=== PATIENT | female | born 1975 | race Caucasian/White ===

== ENCOUNTER 2017-08-03 13:37 | Emergency (ER) | payer OTHER ==
[2017-08-03 13:50] VITALS: BP 168/105
[2017-08-03] MEDS ORDERED: oxyCOD/ACETAMIN 5 MG/325 MG TABLET PO STA (15:57)
--- NOTE | 2017-08-03 17:14 | ED Physician Documentation ---
History of Present Illness - Stated complaint Stated Complaint: LEFT CALF PX - Chief complaint Chief Complaint: Ext Problem - Additonal information Additional information: hx from pt while simply stepping up a small step she felt a sudden sharp pop in her posterior L calf then sig swelling and bruising has since developed she has take motrin, worn compression stocking and even borrowed a cam walker but pain and swelling persist her toes feel a little bit numb but that might be due to the tight stockings Review of Systems Constitutional: denies: Fever Cardiac: denies: Chest pain / pressure Respiratory: denies: Dyspnea : denies: Now EGA (denies) Musculoskeletal: reports: Extremity pain, Extremity swelling Endocrine: denies: Easy bruising / bleeding Immunocompromised: denies: Immunocompromised PD PAST MEDICAL HISTORY - Past Medical History Past Medical History: Yes Cardiovascular: Hypertension Neuro: Headache/migraine GI: GERD 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 Psych: Depression, ADD/ADHD - Past Surgical History Past Surgical History: Yes General: Cholecystectomy Ortho: Carpal Tunnel surgery /FOOD TRADES ASSISTANTS: section - Present Medications Home Medications: Ambulatory Orders Medication Instructions Recorded Confirmed Dextroamphetamine/Amphetamine 1 tab PO BID 08/03/17 08/03/17 [Adderall 20 mg Tablet] FLUoxetine [PROzac] 4 tab PO DAILY 08/03/17 08/03/17 Omeprazole [PriLOSEC] 1 tab PO DAILY 08/03/17 08/03/17 hydroCHLOROthiazide 25 mg PO DAILY 08/03/17 08/03/17 [Hydrochlorothiazide] - Allergies Allergies/Adverse Reactions: Allergies Allergy/AdvReac Type Severity Reaction Status Date / Time promethazine HCl * Allergy Hives Verified 08/03/17 14:44 [From Phenergan] - Social History Does the pt smoke?: No Smoking Status: Never smoker Does the pt drink ETOH?: Yes ETOH Use: Wine Does the pt have substance abuse?: No - Immunizations Immunizations are current?: Yes - POLST Patient has POLST: No PD ED PE NORMAL - Vitals Vital signs reviewed: Yes - Cardiac Cardiac: RRR - Respiratory Respiratory: No respiratory distress, Clear bilaterally - Extremities Extremities: Other (LLE calf markedly swollen with aged ecchymosis, palpable cmpt are soft, + cap refill, + sensation though slightly dec to toes, able to mve foot and toes though increases the pain) Results - Vitals Vitals: Vital Signs - 24 hr 08/03/17 13:46 Temperature 35.9 C L Heart Rate 83 Respiratory 16 Rate Blood Pressure 168/105 H O2 Saturation 100 Oxygen O2 Source Room air - Rads (name of study) doppler Radiology: See rad report (no DVT or other abn noted) Departure - Departure Disposition: Home, Self Care Clinical Impression: Strain of calf muscle Qualifiers: Encounter type: initial encounter Laterality: left Qualified Code(s): S86.812A - Strain of other muscle(s) and tendon(s) at lower leg level, left leg, initial encounter Condition: Good Instructions: Gastrocnemius Muscle Tear Follow-Up: CAPRICE JOYA MD [Primary Care Provider] - Comments: The ultrasound is fine - no blood clot seen. Based on your exam I do not think you have compartment syndrome (when the injured muscle swells up so tight it cuts off its own blood supply) Your achilles tendon feel intact and the the foot flexes so I do not think the calf muscles are completely torn But based on your description of the injury and the exam I suspect you have torn the deep calf muscle called the soleus. This may take a whole to fully heal I recommend you be in crutches to rest the leg and allow the muscle to heal - i think this will work better than even the boot you have been wearing. And ice, elevation, an MONICA wrap or compression stocking and continue the motrin Please follow up with your PMD for a recheck this week - if you are not improving with crutches, ice, elevation etc you might need a referral to orthopedics And please get your blood pressure rechecked - it was high today Forms: Activity restrictions
--- NOTE | 2017-08-03 18:19 | Ultrasound Preliminary Report ---
Exam: US DUPLEX EXT VEINS LEFT IMPRESSION: No evidence for deep venous thrombosis. [facility] SITE ID: [id number]
--- NOTE | 2017-08-03 18:19 | Ultrasound Report ---
EXAM: LEFT LOWER EXTREMITY VENOUS ULTRASOUND EXAM DATE: 08/03/2017 05:48 PM. CLINICAL HISTORY: Left calf pain and swelling. COMPARISON: None. TECHNIQUE: Real-time sonographic vascular imaging was performed by the geophysical drafter through the lower extremity utilizing both color-flow and Doppler spectral analysis. Multiple sales representative cash registers static ekaterina ges were saved for review. FINDINGS: Common Femoral Vein (CFV): Normal. CFV-GSV Junction: Normal. Profunda Femoral Vein (PFV): Normal. Femoral Vein (FV) Prox: Normal. Femoral Vein (FV) Mid: Normal. Femoral Vein (FV) Dist: Normal. Popliteal Vein: Normal. Posterior Tibial Veins: Normal. Peroneal Veins: Normal. IMPRESSION: No evidence for deep venous thrombosis. [facility] Referring Provider Line: [phone] SITE ID: [id number]
== END 2017-08-03 19:04 | disposition home or self-care (01) ==
LOC: ED 13:37
DX: S86.812A Strain of other muscle(s) and tendon(s) at lower leg level, left leg, initial encounter (principal); X50.9XXA Other and unspecified overexertion or strenuous movements or postures, initial encounter; I10 Essential (primary) hypertension
CPT/HCPCS: 93971; 99281; 99283; A9270

== ENCOUNTER 2017-11-02 03:14 | Emergency (ER) | payer OTHER ==
--- NOTE | 2017-11-02 03:23 | ED Physician Documentation ---
PD HPI URI - Stated complaint Stated Complaint: THROAT PX - Chief complaint Chief Complaint: Heent - History obtained from History obtained from: Patient - History of Present Illness Timing - onset: How many days ago (3) Timing duration: Days (3) Timing details: Gradual onset, Still present Associated symptoms: Nasal congestion, Sinus pain, Sore throat. No: Fever, Ear pain, Rhinorrhea, Dry cough Contributing factors: No: Sick contact, Travel, Immunocompromised Similar symptoms before: Has not had sx before Recently seen: Not recently seen Review of Systems Constitutional: denies: Fever, Chills Ears: denies: Ear pain Nose: reports: Congestion, Sinus pressure / pain. denies: Rhinorrhea / runny nose Throat: reports: Sore throat. 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 Psych: Depression, ADD/ADHD - Past Surgical History Past Surgical History: Yes General: Cholecystectomy Ortho: Carpal Tunnel surgery /BAKERY DECORATOR: section - Present Medications Home Medications: Ambulatory Orders Medication Instructions Recorded Confirmed Dextroamphetamine/Amphetamine 1 tab PO BID 08/03/17 08/03/17 [Adderall 20 mg Tablet] FLUoxetine [PROzac] 4 tab PO DAILY 08/03/17 08/03/17 Omeprazole [PriLOSEC] 1 tab PO DAILY 08/03/17 08/03/17 hydroCHLOROthiazide 25 mg PO DAILY 08/03/17 08/03/17 [Hydrochlorothiazide] Azithromycin [Zithromax] 250 mg PO DAILY #4 tablet 11/02/17 Carvedilol 6.25 mg PO DAILY 11/02/17 Dexamethasone [Decadron] 4 mg PO DAILY #5 tablet 11/02/17 HYDROcod/ACETAM 5/325 [[place] 5/325] 1 tab PO Q6H PRN #12 tablet 11/02/17 - Allergies Allergies/Adverse Reactions: Allergies Allergy/AdvReac Type Severity Reaction Status Date / Time lisinopril Allergy Itching Verified 11/02/17 03:22 promethazine HCl * Allergy Hives Verified 11/02/17 03:22 [From Phenergan] - Social History Does the pt smoke?: No Smoking Status: Never smoker Does the pt drink ETOH?: Yes Does the pt have substance abuse?: No - Immunizations Immunizations are current?: Yes - POLST Patient has POLST: No PD ED PE NORMAL - Vitals Vital signs reviewed: Yes - General General: Alert and oriented X 3, No acute distress, Well developed/nourished - HEENT HEENT: Ears normal, Moist mucous membranes, Pharynx benign - Neck Neck: Supple, no meningeal sign, No adenopathy - Cardiac Cardiac: RRR, No murmur - Respiratory Respiratory: Clear bilaterally - Abdomen Abdomen: Soft, Non tender - Derm Derm: Normal color, Warm and dry - Neuro Neuro: Alert and oriented X 3, No motor deficit, Normal speech Results - Vitals Vitals: Oxygen O2 Source Room air - Labs Labs: Microbiology 11/02/17 03:25 Group A Strep Throat Culture - Preliminary Throat MIXED OROPHARYNGEAL SHANTELL PRESENT. NO BETA STREP PRESENT IN CULTURE. Laboratory Tests 11/02/17 03:25 Group A Strep Rapid Negative PD MEDICAL DECISION MAKING - ED course Complexity details: considered differential (throat does not look bad and her symptoms are very sinus-like, so likely getting throat inflammation from there. ), d/w patient Departure - Departure Disposition: 01 Home, Self Care Clinical Impression: Throat pain Acute sinusitis Qualifiers: Sinusitis location: maxillary Recurrence: non-recurrent Qualified Code(s): J01.00 - Acute maxillary sinusitis, unspecified Condition: Stable Record reviewed to determine appropriate education?: Yes Instructions: ED Sinusitis Abx Tx Follow-Up: CAPRICE JOYA MD [Primary Care Provider] - Prescriptions: Azithromycin [Zithromax] 250 mg PO DAILY #4 tablet Dexamethasone [Decadron] 4 mg PO DAILY #5 tablet HYDROcod/ACETAM 5/325 [[place] 5/325] 1 tab PO Q6H PRN #12 tablet PRN Reason: Pain Comments: Your throat does not look bad. The pain is likely inflammation due to drainage from sinus infection. Take Zithromax antibiotic and Decadron steroid anti- inflammatory as directed. Tylenol or Ibuprofen for pains and add Hydrocodone if needed for worse pain. I would expect good improvement over the next 2-3 days. Discharge Date/Time: 11/02/17 04:00
[2017-11-02 03:25] VITALS: BP 176/110
[2017-11-02] MEDS ORDERED: ACETAMINOPHEN 325 MG TABLET PO STA (03:42)
[2017-11-02] MEDS ORDERED: HYDROcod/ACET 5/325 Prepack 4 PO STA (03:42)
[2017-11-02] MEDS ORDERED: DEXAMETHASONE 10 MG/ML VIAL PO STA (03:42)
[2017-11-02] MEDS ORDERED: AZITHROMYCIN 250 MG TABLET PO STA (03:42)
== END 2017-11-02 04:00 | disposition home or self-care (01) ==
LOC: ED 03:14
DX: I10 Essential (primary) hypertension (principal); K21.9 Gastro-esophageal reflux disease without esophagitis; J01.00 Acute maxillary sinusitis, unspecified; J02.9 Acute pharyngitis, unspecified
CPT/HCPCS: 87070; 87430; 99283; A9270

== ENCOUNTER 2018-08-19 18:37 | Outpatient (CLI) | payer OTHER ==
--- NOTE | 2018-08-20 09:42 | Ultrasound Report ---
Reason: RECTAL/ANAL BLEEDING,DYSMENORRHEA,PELVIC PAIN Procedure Date: 08/19/2018 Accession Number: [id number] / [id number] Procedure: US - Pelvic w/Transvaginal CPT Code: FULL RESULT: EXAM: PELVIC ULTRASOUND EXAM DATE: 08/19/2018 07:30 PM. CLINICAL HISTORY: Rectal/anal bleeding, dysmenorrhea, pelvic pain. Last menstrual period 07/25/2018. COMPARISON: None. TECHNIQUE: Realtime transabdominal pelvic scan performed to identify the uterus and adnexa and as an overview of other pelvic structures, followed by transvaginal scan to provide greater detail of the uterus and adnexa, with static image documentation. FINDINGS: Uterus: 8.8 x 5.6 x 7.2 cm, volume 185 cc. Retroflexed position. Normal in size. Masses: 2.2 cm mildly echogenic oval mass of the posterior fundal myometrium. Endometrium: 17 mm. Heterogeneous and mildly thickened (patient is currently spotting). Cervix: Unremarkable. Right Ovary: 3.4 x 3.1 x 3.1. cm, volume 17 cc. Normal echotexture and blood flow. Left Ovary: 2.7 x 2.4 x 3.1 cm, volume 10 cc. Normal echotexture and blood flow. Free Fluid: None. Other: None. IMPRESSION: 1. 2.2 cm oval mass of the posterior fundal myometrium consistent with fibroid. 2. Mild thickening and heterogeneity of the endometrium at 17 mm, likely physiologic given timing of the exam and that patient is currently spotting. [facility]
== END 2018-08-19 18:38 | disposition home or self-care (01) ==
LOC: DI 18:37
PROVIDERS: ATTEND Obstetrics & Gynecology
DX: K62.5 Hemorrhage of anus and rectum (principal); N94.6 Dysmenorrhea, unspecified; R10.2 Pelvic and perineal pain; D25.9 Leiomyoma of uterus, unspecified; R93.89 Abnormal findings on diagnostic imaging of other specified body structures
CPT/HCPCS: 76830; 76856

== ENCOUNTER 2018-09-01 08:30 | Outpatient (CLI) | payer OTHER ==
[~2018-09-01 08:30] MED LIST: IOVERSOL 320 100 ML VIAL IVP ONE; IOVERSOL 320 50 ML VIAL ONE
[2018-09-01] MEDS ORDERED: IOVERSOL 320 50 ML VIAL PO ONE (11:30)
[2018-09-01] MEDS ORDERED: IOVERSOL 320 100 ML VIAL IVP ONE (11:30)
--- NOTE | 2018-09-01 12:29 | CT Report ---
Reason: RECTAL/ANAL BLEEDING Procedure Date: 09/01/2018 Accession Number: [id number] / [id number] Procedure: CT - Abdomen/Pelvis W CPT Code: FULL RESULT: EXAM: CT ABDOMEN AND PELVIS EXAM DATE: 09/01/2018 09:44 AM. CLINICAL HISTORY: Rectal/anal bleeding. COMPARISONS: None. TECHNIQUE: Routine helical CT imaging was performed through the abdomen and pelvis. IV contrast: opti 320 90mL. Enteric contrast: No. Reconstructions: Coronal and sagittal. In accordance with CT protocol optimization, one or more of the following dose reduction techniques were utilized for this exam: automated exposure control, adjustment of mA and/or KV based on patient size, or use of iterative reconstructive technique. FINDINGS: Lung Bases: Unremarkable. Liver: Left lobe hepatic hypodensities too small to characterize. Gallbladder/Bile Ducts: Status post cholecystectomy, otherwise unremarkable. Spleen: Normal. Pancreas: Normal. Adrenal Glands: Normal. Kidneys: 0.6 cm nonobstructing left renal calculus. No hydronephrosis on either side. Peritoneal Cavity/Bowel: Normal. No free fluid, free air or adenopathy. No masses or acute inflammatory process. The appendix is well visualized and normal. Pelvic Organs: Normal. The bladder and visualized pelvic organs are within normal limits. Vasculature: No aneurysms or other significant abnormality. Bones: No significant abnormality. Other: None. IMPRESSION: The etiology of the patient's gastrointestinal bleeding is not identified. Nonobstructing 0.6 cm left renal calculus. [facility]
== END 2018-09-01 08:31 | disposition home or self-care (01) ==
LOC: DI 08:30
PROVIDERS: ATTEND Obstetrics & Gynecology
DX: K62.5 Hemorrhage of anus and rectum (principal); N20.0 Calculus of kidney
CPT/HCPCS: 74177; Q9967

== ENCOUNTER 2018-11-08 20:40 | Outpatient (CLI) | payer OTHER | END 2018-11-08 20:41 | disposition critical access hospital (66) | LOC: EMS 20:40 | PROVIDERS: ATTEND Surgery | DX: T42.8X2A Poisoning by antiparkinsonism drugs and other central muscle-tone depressants, intentional self-harm, initial encounter (principal); Y92.009 Unspecified place in unspecified non-institutional (private) residence as the place of occurrence of the external cause | CPT/HCPCS: A0425; A0429 ==

== ENCOUNTER 2018-11-08 20:52 | Emergency (ER) | payer OTHER ==
[2018-11-08] MEDS ORDERED: SODIUM CHLORIDE 0.9% 1,000 ML IV ONE (21:03)
[2018-11-08 21:10] LABS: BASOPHILS # (AUTO) 0.1 10^3/uL (0.0-0.1); BASOPHILS % (AUTO) 0.6 %; EOSINOPHILS # (AUTO) 0.1 10^3/uL (0.0-0.7); EOSINOPHILS % (AUTO) 0.8 %; HGB - HEMOGLOBIN 13.2 g/dL (12.0-16.0); LYMPHOCYTES % (AUTO) 35.2 %; MEAN CORPUSCULAR HEMOGLOBIN 28.7 pg (27.0-31.0); MEAN CORPUSCULAR HGB CONC 33.6 g/dL (32.0-36.0); MEAN CORPUSCULAR VOLUME 85.5 fL (81.0-99.0); MONOCYTES # (AUTO) 0.4 10^3/uL (0.0-1.0); MONOCYTES % (AUTO) 4.4 %; NEUTROPHILS # (AUTO) 4.9 10^3/uL (1.5-6.6); PLT - PLATELET COUNT 307 10^3/uL (130-450); RED CELL DISTRIBUTION WIDTH 13.5 % (12.0-15.0); WHITE BLOOD COUNT 8.4 x10^3/uL (4.8-10.8)
--- NOTE | 2018-11-08 21:10 | ED Physician Documentation ---
History of Present Illness - Stated complaint Stated Complaint: SI - Chief complaint Chief Complaint: MHE - History obtained from History obtained from: Patient, Family - Additonal information Additional information: Patient is a 43-year-old female with history of hypertension, endometriosis, anxiety and remote depression presenting with her after likely medication overdose (SOMA) and attempted suicide.Patient is extremely somnolent, although breathing on her own, and does not provide significant history except for nodding an occasional response to questions. She does admit to taking mu scle relaxants tonight and denies co-ingestions of narcotics, Tylenol, or other uovp-olu-iizibim medications. However, is concerned that she may have taken additional medication such as tramadol letter in the house. Patient also had wine this evening. Patient does admit that this is a suicide attempt. The soma medication is the patient's 's old prescription from 2013. The tablets are 500 mg apiece and it is believed that she may have taken 15-20 tablets just prior to arrival. reports that she has had a remote history of depression in her younger years, but is not currently seeing a therapist or on antidepressants. Patient does take medication for anxiety compliantly though. reports that patient has been stating that she is feeling more depressed lately and has had increased stressors, particularly with her son. Earlier tonight, the patient had an argument with her son, which seems to have precipitated this event. No other improving or worsening factors noted to her symptoms. Patient currently denies pain, nausea, vomiting. 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 Psych: Depression, ADD/ADHD - Past Surgical History Past Surgical History: Yes General: Cholecystectomy Ortho: Carpal Tunnel surgery /HYDRATE THICKENER OPERATOR: section - Present Medications Home Medications: Ambulatory Orders Medication Instructions Recorded Confirmed RX: hydroCHLOROthiazide 25 mg PO DAILY 08/03/17 11/08/18 [Hydrochlorothiazide] Dextroamphetamine/Amphetamine 1 tab PO DAILY 11/08/18 11/08/18 [Adderall 10 mg Tablet] clonazePAM [KlonoPIN] 1 tab PO DAILY 11/08/18 11/08/18 Venlafaxine HCl [Venlafaxine HCl 11/09/18 ER] - Allergies Allergies/Adverse Reactions: Allergies Allergy/AdvReac Type Severity Reaction Status Date / Time lisinopril Allergy Itching Verified 11/08/18 20:57 promethazine HCl * Allergy Hives Verified 11/08/18 20:57 [From Phenergan] - Social History Does the pt smoke?: No Smoking Status: Never smoker Does the pt drink ETOH?: Yes Does the pt have substance abuse?: No - Immunizations Immunizations are current?: Yes - POLST Patient has POLST: No PD ED PE NORMAL - General General: No acute distress, Well developed/nourished. No: Alert and oriented X 3 (Drowsy and somewhat arousable, responds mostly in nods) - HEENT HEENT: Atraumatic, PERRL (No miosis), EOMI, Moist mucous membranes, Pharynx benign, Dentition benign - Cardiac Cardiac: RRR, No murmur - Respiratory Respiratory: No respiratory distress, Clear bilaterally - Abdomen Abdomen: Normal bowel sounds, Soft, Non tender, Non distended - Derm Derm: Normal color, Warm and dry, No rash - Extremities Extremities: No deformity, No tenderness to palpate, No edema - Neuro Neuro: No motor deficit, No sensory deficit (No gross deficits noted, difficult to fully asses given patient's drowsiness). No: Alert and oriented X 3 - Psych Psych: Other (Drowsy, admits to SI) Results - Vitals Vitals: Vital Signs - 24 hr 11/08/18 11/08/18 11/08/18 20:53 22:02 22:18 Temperature 37.2 C Heart Rate 102 H 92 90 Respiratory 15 20 16 Rate Blood Pressure 175/108 H 153/84 H 132/81 H O2 Saturation 97 100 100 11/08/18 11/08/18 11/09/18 22:42 23:08 00:28 Temperature Heart Rate 92 96 97 Respiratory 16 17 16 Rate Blood Pressure 149/90 H 144/92 H 139/86 H O2 Saturation 100 99 98 11/09/18 11/09/18 11/09/18 01:18 02:06 03:35 Temperature Heart Rate 90 88 88 Respiratory 18 18 18 Rate Blood Pressure 173/114 H 155/94 H 176/117 H O2 Saturation 95 96 96 11/09/18 11/09/18 11/09/18 05:08 06:10 08:00 Temperature 36.5 C Heart Rate 93 98 77 Respiratory 19 17 18 Rate Blood Pressure 164/97 H 168/112 H 212/119 H O2 Saturation 99 99 99 11/09/18 11/09/18 11/09/18 08:30 09:00 10:56 Temperature Heart Rate 87 65 Respiratory 18 17 18 Rate Blood Pressure 190/109 H 160/99 H 153/94 H O2 Saturation 99 99 96 11/09/18 14:18 Temperature Heart Rate 65 Respiratory 16 Rate Blood Pressure 150/81 H O2 Saturation 96 Oxygen O2 Source Room air - EKG (time done) 2109 Rate: Rate (enter#) (93) Rhythm: NSR - Labs Labs: Laboratory Tests 11/08/18 11/08/18 11/08/18 20:59 20:59 20:59 WBC 8.4 RBC 4.60 Hgb 13.2 Hct 39.3 MCV 85.5 MCH 28.7 MCHC 33.6 RDW 13.5 Plt Count 307 MPV 7.0 L Neut # (Auto) 4.9 Lymph # (Auto) 3.0 Camp # (Auto) 0.4 Eos # (Auto) 0.1 Baso # (Auto) 0.1 Absolute Nucleated RBC 0.01 Nucleated RBC % 0.1 VBG pH VBG pCO2 VBG pO2 VBG HCO3 VBG Total CO2 VBG O2 Saturation VBG Base Excess Sodium 139 Potassium 2.5 L* Chloride 101 Carbon Dioxide 25 Anion Gap 13.0 BUN 14 Creatinine 0.8 Estimated GFR (MDRD) 79 L Glucose 105 H Calcium 9.6 Total Bilirubin 0.6 AST 76 H ALT 36 Alkaline Phosphatase 117 Troponin I < 0.04 Total Protein 7.6 Albumin 4.3 Globulin 3.3 Albumin/Globulin Ratio 1.3 Lipase 80 H TSH Serum HCG, Qual NEGATIVE Urine Color Urine Clarity Urine pH Ur Specific [place] Urine Protein Urine Glucose (UA) Urine Ketones Urine Occult Blood Urine Nitrite Urine Bilirubin Urine Urobilinogen Ur Leukocyte Esterase Ur Microscopic Review Urine Culture Comments Salicylates < 6.0 Urine Opiates Screen Ur Oxycodone Screen Urine Methadone Screen Ur Propoxyphene Screen Acetaminophen 16 Ur Barbiturates Screen Ur Tricyclics Screen Ur Phencyclidine Scrn Ur Amphetamine Screen U Methamphetamines Scrn U Benzodiazepines Scrn Urine Cocaine Screen U Cannabinoids Screen Ethyl Alcohol 124.3 11/08/18 11/08/18 11/08/18 20:59 21:14 21:30 WBC RBC Hgb Hct MCV MCH MCHC RDW Plt Count MPV Neut # (Auto) Lymph # (Auto) Camp # (Auto) Eos # (Auto) Baso # (Auto) Absolute Nucleated RBC Nucleated RBC % VBG pH 7.435 H VBG pCO2 37.7 L VBG pO2 71.7 H VBG HCO3 24.7 VBG Total CO2 25.9 VBG O2 Saturation 94.1 H VBG Base Excess 0.7 Sodium Potassium Chloride Carbon Dioxide Anion Gap BUN Creatinine Estimated GFR (MDRD) Glucose Calcium Total Bilirubin AST ALT Alkaline Phosphatase Troponin I Total Protein Albumin Globulin Albumin/Globulin Ratio Lipase TSH 0.53 Serum HCG, Qual Urine Color LIGHT YELLOW Urine Clarity CLEAR Urine pH 7.0 Ur Specific [place] <=1.005 Urine Protein NEGATIVE Urine Glucose (UA) NEGATIVE Urine Ketones NEGATIVE Urine Occult Blood TRACE-INTA Urine Nitrite NEGATIVE Urine Bilirubin NEGATIVE Urine Urobilinogen 0.2 (NORMAL) Ur Leukocyte Esterase NEGATIVE Ur Microscopic Review NOT INDICATED Urine Culture Comments NOT INDICATED Salicylates Urine Opiates Screen NEGATIVE Ur Oxycodone Screen NEGATIVE Urine Methadone Screen NEGATIVE Ur Propoxyphene Screen NEGATIVE Acetaminophen Ur Barbiturates Screen NEGATIVE Ur Tricyclics Screen NEGATIVE Ur Phencyclidine Scrn NEGATIVE Ur Amphetamine Screen POSITIVE H U Methamphetamines Scrn NEGATIVE U Benzodiazepines Scrn NEGATIVE Urine Cocaine Screen NEGATIVE U Cannabinoids Screen NEGATIVE Ethyl Alcohol 11/09/18 11/09/18 01:04 01:06 WBC RBC Hgb Hct MCV MCH MCHC RDW Plt Count MPV Neut # (Auto) Lymph # (Auto) Camp # (Auto) Eos # (Auto) Baso # (Auto) Absolute Nucleated RBC Nucleated RBC % VBG pH VBG pCO2 VBG pO2 VBG HCO3 VBG Total CO2 VBG O2 Saturation VBG Base Excess Sodium Potassium 3.1 L Chloride Carbon Dioxide Anion Gap BUN Creatinine Estimated GFR (MDRD) Glucose Calcium Total Bilirubin AST ALT Alkaline Phosphatase Troponin I Total Protein Albumin Globulin Albumin/Globulin Ratio Lipase TSH Serum HCG, Qual Urine Color Urine Clarity Urine pH Ur Specific [place] Urine Protein Urine Glucose (UA) Urine Ketones Urine Occult Blood Urine Nitrite Urine Bilirubin Urine Urobilinogen Ur Leukocyte Esterase Ur Microscopic Review Urine Culture Comments Salicylates Urine Opiates Screen Ur Oxycodone Screen Urine Methadone Screen Ur Propoxyphene Screen Acetaminophen < 10 L Ur Barbiturates Screen Ur Tricyclics Screen Ur Phencyclidine Scrn Ur Amphetamine Screen U Methamphetamines Scrn U Benzodiazepines Scrn Urine Cocaine Screen U Cannabinoids Screen Ethyl Alcohol PD MEDICAL DECISION MAKING - ED course Complexity details: reviewed old records, reviewed results, re-evaluated patient, considered differential, d/w patient, d/w family, other (Poison Control) ED course: Most concerning for suicidal ideation and attempt, medication overdose, respiratory depression given reported history of depression and anxiety, recent increased stressors and depressed symptoms, particularly per patient's , as well as has been and patient admitting to medication ingestion and suicide attempt earlier tonight. Patient and admit to patient taking methocarbamol 500 mg, approximately 15-20 tablets in combination with alcohol, specifically several glasses of wine. Patient denies other coingestions and is unsure if patient took anything else, but does admit to having tramadol prescription in the house as well. Given patient's exam, do not have high suspicion for narcotic overdose at this time. Do not feel that patient requires Narcan. Patient is drowsy, but arousable with verbal cues. Patient mostly nods her responses to questions. Patient is maintaining her airway and does not require emergent intubation or other respiratory interventions at this time. Physical exam is otherwise unremarkable do not find evidence of trauma, infection, or other neurological deficit present.Do not feel patient requires other medications at this time, but started on IV fluids and obtained blood work and urinalysis, as well as EKG. EKG is unremarkable. Poison Control contacted and recommended 6-8 hours of observation and to be vigilant for seizure activity.Given patient's overdose, symptoms and physical exam, as well as mental health component, feel the patient will require monitoring overnight with her in the ED or as an inpatient and eventual psychiatry evaluation when she is more awake and able to interact. Lab work returned with evidence of hypokalemia, likely due to patient's chronic use of HCTZ. IV potassium was given and repeat potassium level increased appropriately. Remainder of lab work relatively unremarkable except for drug screening, which reflected ethanol, amphetamines, and Tylenol. Amphetamines is likely due to patient's Adderall use. Tylenol lev el is not high enough to require NAC or intervention at this time, but will repeat level in 4 hours (4 hours since time of ingestion). Repeat level continues to decline appropriately and otherwise does not meet threshold for NAC. Again, this will not require further intervention. Patient continued to improve throughout the night. and patient were updated regularly. Telemetry psychiatry was consulted, but due to technical issues, this process is delayed and pending. Patient signed out to oncoming physician and disposition per psychiatry and . Just before leaving shift, physician received report from psychiatry, who is recommending voluntary admission. Departure - Departure Disposition: 65 Psych Hosp/Unit DC/Xfer Clinical Impression: Depression, Anxiety, Drug overdose Condition: Fair Discharge Date/Time: 11/09/18 17:45
[2018-11-08 21:17] LABS: VBG BASE EXCESS 0.7 mmol/L (-2 - +2); VBG PCO2 37.7 mmHg (41-51); VBG PH 7.435 (7.31-7.41); VBG PO2 71.7 mmHg (25-47); VBG TOTAL CO2 25.9 mmol/L (24-29)
[2018-11-08 21:40] LABS: ACETAMINOPHEN 16 ug/mL (10-30); ALBUMIN 4.3 g/dL (3.2-5.5); ALBUMIN/GLOBULIN RATIO 1.3 (1.0-2.2); ALKALINE PHOSPHATASE 117 IU/L (42-121); ALT ALANINE AMINOTRANSFERASE 36 IU/L (10-60); AST ASPARTATE AMINOTRANSFERASE 76 IU/L (10-42); BILIRUBIN,TOTAL 0.6 mg/dL (0.2-1.0); BUN - BLOOD UREA NITROGEN 14 mg/dL (6-20); CALCIUM 9.6 mg/dL (8.5-10.3); CARBON DIOXIDE - CO2 25 mmol/L (21-32); CHLORIDE 101 mmol/L (101-111); CREATININE 0.8 mg/dL (0.4-1.0); GFR - MDRD 79 (>89); GLUCOSE 105 mg/dL (70-100); LIPASE 80 U/L (22-51); SALICYLATE < 6.0 mg/dL; SODIUM 139 mmol/L (135-145); TOTAL PROTEIN 7.6 g/dL (6.7-8.2)
[2018-11-08 21:42] LABS: HCG,QUALITATIVE BLOOD NEGATIVE
[2018-11-08] MEDS ORDERED: POTASSIUM CHLOR 20 MEQ/100 ML 20 MEQ/100 ML BAG IV ONE (21:45)
[2018-11-08 21:59] LABS: MUDS CUTOFF CONCENTRATIONS CUTOFF CONC BELOW:
[2018-11-08 22:06] LABS: BILIRUBIN,URINE NEGATIVE (NEGATIVE); GLUCOSE, URINE (UA) NEGATIVE (NEGATIVE); KETONES,URINE (UA) NEGATIVE (NEGATIVE); LEUKOCYTE ESTERASE, URINE NEGATIVE (NEGATIVE); NITRITE,URINE NEGATIVE (NEGATIVE); OCCULT BLOOD,URINE TRACE-INTA (NEGATIVE); PROTEIN,URINE NEGATIVE (NEGATIVE); UROBILINOGEN,URINE 0.2 (NORMAL) E.U./dL (NORMAL)
[2018-11-08 22:07] LABS: CLARITY,URINE CLEAR (CLEAR)
[2018-11-08 22:11] LABS: AMPHETAMINE SCREEN,URINE POSITIVE (NEGATIVE); BENZODIAZEPINES SCREEN, URINE NEGATIVE (NEGATIVE); COCAINE SCREEN URINE NEGATIVE (NEGATIVE); METHADONE SCREEN, URINE NEGATIVE (NEGATIVE); METHAMPHETAMINES SCREEN, URINE NEGATIVE (NEGATIVE); OPIATE SCREEN, URINE NEGATIVE (NEGATIVE); OXYCODONE SCREEN, URINE NEGATIVE (NEGATIVE); PROPOXYPHENE SCREEN, URINE NEGATIVE (NEGATIVE); TRICYCLIC ANTIDEPRESSANT,URINE NEGATIVE (NEGATIVE)
[2018-11-08] MEDS ORDERED: POTASSIUM CHLOR 10 MEQ/100 ML 10 MEQ/100 ML BAG IV ONE ×2 (22:18→22:19)
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
[2018-11-09] MEDS ORDERED: ACETAMINOPHEN 500 MG TABLET PO STA (08:16)
[2018-11-09 14:21] VITALS: BP 150/81
--- NOTE | 2018-11-09 15:48 | ED Physician Documentation ---
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 Psych: Depression, ADD/ADHD - Past Surgical History Past Surgical History: Yes General: Cholecystectomy Ortho: Carpal Tunnel surgery /DENTAL CERAMIST HELPER: section - Present Medications Home Medications: Ambulatory Orders Medication Instructions Recorded Confirmed hydroCHLOROthiazide 25 mg PO DAILY 08/03/17 11/08/18 [Hydrochlorothiazide] Dextroamphetamine/Amphetamine 1 tab PO DAILY 11/08/18 11/08/18 [Adderall 10 mg Tablet] clonazePAM [KlonoPIN] 1 tab PO DAILY 11/08/18 11/08/18 Venlafaxine HCl [Venlafaxine HCl 11/09/18 ER] - Allergies Allergies/Adverse Reactions: Allergies Allergy/AdvReac Type Severity Reaction Status Date / Time lisinopril Allergy Itching Verified 11/08/18 20:57 promethazine HCl * Allergy Hives Verified 11/08/18 20:57 [From Phenergan] - Social History Does the pt smoke?: No Smoking Status: Never smoker Does the pt drink ETOH?: Yes ETOH Use: Wine Does the pt have substance abuse?: No - Immunizations Immunizations are current?: Yes - POLST Patient has POLST: No Results - Vitals Vitals: Vital Signs - 24 hr 11/08/18 11/08/18 11/08/18 20:53 22:02 22:18 Temperature 37.2 C Heart Rate 102 H 92 90 Respiratory 15 20 16 Rate Blood Pressure 175/108 H 153/84 H 132/81 H O2 Saturation 97 100 100 11/08/18 11/08/18 11/09/18 22:42 23:08 00:28 Temperature Heart Rate 92 96 97 Respiratory 16 17 16 Rate Blood Pressure 149/90 H 144/92 H 139/86 H O2 Saturation 100 99 98 11/09/18 11/09/18 11/09/18 01:18 02:06 03:35 Temperature Heart Rate 90 88 88 Respiratory 18 18 18 Rate Blood Pressure 173/114 H 155/94 H 176/117 H O2 Saturation 95 96 96 11/09/18 11/09/18 11/09/18 05:08 06:10 08:00 Temperature 36.5 C Heart Rate 93 98 77 Respiratory 19 17 18 Rate Blood Pressure 164/97 H 168/112 H 212/119 H O2 Saturation 99 99 99 11/09/18 11/09/18 11/09/18 08:30 09:00 10:56 Temperature Heart Rate 87 65 Respiratory 18 17 18 Rate Blood Pressure 190/109 H 160/99 H 153/94 H O2 Saturation 99 99 96 11/09/18 14:18 Temperature Heart Rate 65 Respiratory 16 Rate Blood Pressure 150/81 H O2 Saturation 96 Oxygen O2 Source Room air - Labs Labs: Laboratory Tests 11/08/18 11/08/18 11/08/18 20:59 20:59 20:59 WBC 8.4 RBC 4.60 Hgb 13.2 Hct 39.3 MCV 85.5 MCH 28.7 MCHC 33.6 RDW 13.5 Plt Count 307 MPV 7.0 L Neut # (Auto) 4.9 Lymph # (Auto) 3.0 [place] # (Auto) 0.4 Eos # (Auto) 0.1 Baso # (Auto) 0.1 Absolute Nucleated RBC 0.01 Nucleated RBC % 0.1 VBG pH VBG pCO2 VBG pO2 VBG HCO3 VBG Total CO2 VBG O2 Saturation VBG Base Excess Sodium 139 Potassium 2.5 L* Chloride 101 Carbon Dioxide 25 Anion Gap 13.0 BUN 14 Creatinine 0.8 Estimated GFR (MDRD) 79 L Glucose 105 H Calcium 9.6 Total Bilirubin 0.6 AST 76 H ALT 36 Alkaline Phosphatase 117 Troponin I < 0.04 Total Protein 7.6 Albumin 4.3 Globulin 3.3 Albumin/Globulin Ratio 1.3 Lipase 80 H TSH Serum HCG, Qual NEGATIVE Urine Color Urine Clarity Urine pH Ur Specific [place] Urine Protein Urine Glucose (UA) Urine Ketones Urine Occult Blood Urine Nitrite Urine Bilirubin Urine Urobilinogen Ur Leukocyte Esterase Ur Microscopic Review Urine Culture Comments Salicylates < 6.0 Urine Opiates Screen Ur Oxycodone Screen Urine Methadone Screen Ur Propoxyphene Screen Acetaminophen 16 Ur Barbiturates Screen Ur Tricyclics Screen Ur Phencyclidine Scrn Ur Amphetamine Screen U Methamphetamines Scrn U Benzodiazepines Scrn Urine Cocaine Screen U Cannabinoids Screen Ethyl Alcohol 124.3 11/08/18 11/08/18 11/08/18 20:59 21:14 21:30 WBC RBC Hgb Hct MCV MCH MCHC RDW Plt Count MPV Neut # (Auto) Lymph # (Auto) [place] # (Auto) Eos # (Auto) Baso # (Auto) Absolute Nucleated RBC Nucleated RBC % VBG pH 7.435 H VBG pCO2 37.7 L VBG pO2 71.7 H VBG HCO3 24.7 VBG Total CO2 25.9 VBG O2 Saturation 94.1 H VBG Base Excess 0.7 Sodium Potassium Chloride Carbon Dioxide Anion Gap BUN Creatinine Estimated GFR (MDRD) Glucose Calcium Total Bilirubin AST ALT Alkaline Phosphatase Troponin I Total Protein Albumin Globulin Albumin/Globulin Ratio Lipase TSH 0.53 Serum HCG, Qual Urine Color LIGHT YELLOW Urine Clarity CLEAR Urine pH 7.0 Ur Specific [place] <=1.005 Urine Protein NEGATIVE Urine Glucose (UA) NEGATIVE Urine Ketones NEGATIVE Urine Occult Blood TRACE-INTA Urine Nitrite NEGATIVE Urine Bilirubin NEGATIVE Urine Urobilinogen 0.2 (NORMAL) Ur Leukocyte Esterase NEGATIVE Ur Microscopic Review NOT INDICATED Urine Culture Comments NOT INDICATED Salicylates Urine Opiates Screen NEGATIVE Ur Oxycodone Screen NEGATIVE Urine Methadone Screen NEGATIVE Ur Propoxyphene Screen NEGATIVE Acetaminophen Ur Barbiturates Screen NEGATIVE Ur Tricyclics Screen NEGATIVE Ur Phencyclidine Scrn NEGATIVE Ur Amphetamine Screen POSITIVE H U Methamphetamines Scrn NEGATIVE U Benzodiazepines Scrn NEGATIVE Urine Cocaine Screen NEGATIVE U Cannabinoids Screen NEGATIVE Ethyl Alcohol 11/09/18 11/09/18 01:04 01:06 WBC RBC Hgb Hct MCV MCH MCHC RDW Plt Count MPV Neut # (Auto) Lymph # (Auto) [place] # (Auto) Eos # (Auto) Baso # (Auto) Absolute Nucleated RBC Nucleated RBC % VBG pH VBG pCO2 VBG pO2 VBG HCO3 VBG Total CO2 VBG O2 Saturation VBG Base Excess Sodium Potassium 3.1 L Chloride Carbon Dioxide Anion Gap BUN Creatinine Estimated GFR (MDRD) Glucose Calcium Total Bilirubin AST ALT Alkaline Phosphatase Troponin I Total Protein Albumin Globulin Albumin/Globulin Ratio Lipase TSH Serum HCG, Qual Urine Color Urine Clarity Urine pH Ur Specific [place] Urine Protein Urine Glucose (UA) Urine Ketones Urine Occult Blood Urine Nitrite Urine Bilirubin Urine Urobilinogen Ur Leukocyte Esterase Ur Microscopic Review Urine Culture Comments Salicylates Urine Opiates Screen Ur Oxycodone Screen Urine Methadone Screen Ur Propoxyphene Screen Acetaminophen < 10 L Ur Barbiturates Screen Ur Tricyclics Screen Ur Phencyclidine Scrn Ur Amphetamine Screen U Methamphetamines Scrn U Benzodiazepines Scrn Urine Cocaine Screen U Cannabinoids Screen Ethyl Alcohol PD MEDICAL DECISION MAKING - ED course Complexity details: re-evaluated patient, d/w patient, d/w family, d/w business information consultant ED course: At change of shift the patient's care was turned over to me pending evaluation by medical assisting program director for anticipated psychiatric hospitalization. Tele- psych physician had recommended psychiatric hospitalization. She was evaluated by the medical assisting program director and placement was obtained at [facility] in [place]. Transfer forms were completed, and the patient is being transported by BLS ambulance. Departure - Departure Disposition: 65 Psych Hosp/Unit DC/Xfer Clinical Impression: Anxiety Depression Qualifiers: Depression Type: major depressive disorder Qualified Code(s): F32.9 - Major depressive disorder, single episode, unspecified Drug overdose Qualifiers: Encounter type: initial encounter Injury intent: intentional self-harm Qualified Code(s): T50.902A - Poisoning by unspecified drugs, medicaments and biological substances, intentional self-harm, initial encounter Condition: Fair
== END 2018-11-09 17:45 ==
LOC: EDUNIT# → ED 20:52
DX: T42.8X2A Poisoning by antiparkinsonism drugs and other central muscle-tone depressants, intentional self-harm, initial encounter (principal); F32.9 Major depressive disorder, single episode, unspecified; F41.9 Anxiety disorder, unspecified; E87.6 Hypokalemia; I10 Essential (primary) hypertension; Z62.810 Personal history of physical and sexual abuse in childhood
CPT/HCPCS: 36415; 80320; 80329; 81003; 82803; 83690; 84132; 84484; 84703; 93005; 96365; 96366; 99285; A9270; 80053; 80306; 80307; 81001; 84443; 85025; 87086

== ENCOUNTER 2019-12-01 09:21 | Emergency (ER) | payer OTHER ==
[2019-12-01 09:53] LABS: BASOPHILS % (AUTO) 0.4 %; EOSINOPHILS # (AUTO) 0.1 10^3/uL (0.0-0.7); EOSINOPHILS % (AUTO) 0.7 %; HGB - HEMOGLOBIN 13.3 g/dL (12.0-16.0); LYMPHOCYTES # (AUTO) 2.4 10^3/uL (1.5-3.5); LYMPHOCYTES % (AUTO) 34.8 %; MEAN CORPUSCULAR HEMOGLOBIN 30.1 pg (27.0-31.0); MEAN CORPUSCULAR HGB CONC 34.7 g/dL (32.0-36.0); MEAN CORPUSCULAR VOLUME 86.7 fL (81.0-99.0); MEAN PLATELET VOLUME 8.5 fL (7.9-10.8); MONOCYTES # (AUTO) 0.3 10^3/uL (0.0-1.0); NEUTROPHILS % (AUTO) 58.8 %; PLT - PLATELET COUNT 265 10^3/uL (130-450); RED BLOOD COUNT 4.42 10^6/uL (4.20-5.40); RED CELL DISTRIBUTION WIDTH 12.3 % (12.0-15.0); WHITE BLOOD COUNT 6.8 x10^3/uL (4.8-10.8)
[2019-12-01 10:12] LABS: ALBUMIN/GLOBULIN RATIO 1.4 (1.0-2.2); BILIRUBIN,TOTAL 0.7 mg/dL (0.2-1.0); CALCIUM 9.3 mg/dL (8.5-10.3); CREATININE 0.6 mg/dL (0.4-1.0); TOTAL PROTEIN 6.8 g/dL (6.7-8.2)
[2019-12-01] MEDS ORDERED: SODIUM CHLORIDE 0.9% 1,000 ML IV STA (10:30)
[2019-12-01] MEDS ORDERED: KETOROLAC 30 MG/ML VIAL IVP STA (10:30)
[2019-12-01] MEDS ORDERED: ONDANSETRON 4 MG/2 ML VIAL IVP STA (10:30)
--- NOTE | 2019-12-01 10:33 | ED Physician Documentation ---
History of Present Illness - Stated complaint Stated Complaint: CHEST PX/SOA - Chief complaint Chief Complaint: Resp - History obtained from History obtained from: Patient - Additonal information Additional information: Patient comes emergency department complaining of difficulty breathing, chest pain, and fever and chills for the last several days. Patient states that her symptoms started with nausea and vomiting, which lasted just over 24 hours. She states that she still has continued to have nausea but has not had any vomiting for the last few days. She states that she did develop diarrhea, and has not been able to eat anything solid. She states she just has egg drop soup, tea, and water, which she has been able to hold down. Patient's diarrhea continues. She states that she began to develop an increasing sensation of discomfort in her chest which is worse with deep breath. She states that now, she feels "short of breath" because she cannot get a deep breath in. She denies cough. Mild sore throat. Patient states she does have a significant headache, which has not improved with Tylenol. No other complaints at this time. No new sick contacts. She does have contact with her [id number] who is sick with pneumonia and is being treated with antibiotics. Review of Systems Ten Systems: 10 systems reviewed and negative Constitutional: reports: Reviewed and negative Eyes: reports: Reviewed and negative Ears: reports: Reviewed and negative Nose: reports: Reviewed and negative Throat: reports: Reviewed and negative Cardiac: reports: Chest pain / pressure Respiratory: reports: Dyspnea (Pain with deep breath) GI: reports: Nausea, Vomiting, Diarrhea : reports: Reviewed and negative Skin: reports: Reviewed and negative Musculoskeletal: reports: Reviewed and negative Neurologic: reports: Reviewed and negative Psychiatric: reports: Reviewed and negative Endocrine: reports: Reviewed and negative Immunocompromised: reports: Reviewed and negative PD PAST MEDICAL HISTORY - Past Medical History Cardiovascular: Hypertension GI: GERD 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 Psych: Depression, ADD/ADHD - Past Surgical History Past Surgical History: Yes General: Cholecystectomy Ortho: Carpal Tunnel surgery /STORE SPECIALIST: section - Present Medications Home Medications: Ambulatory Orders Medication Instructions Recorded Confirmed hydroCHLOROthiazide 25 mg PO DAILY 08/03/17 11/08/18 [Hydrochlorothiazide] Dextroamphetamine/Amphetamine 1 tab PO DAILY 11/08/18 11/08/18 [Adderall 10 mg Tablet] clonazePAM [KlonoPIN] 1 tab PO DAILY 11/08/18 11/08/18 Venlafaxine HCl [Venlafaxine HCl 11/09/18 ER] Ondansetron Odt [Zofran Odt] 4 mg TL Q6H PRN #10 tablet 12/01/19 - Allergies Allergies/Adverse Reactions: Allergies Allergy/AdvReac Type Severity Reaction Status Date / Time lisinopril Allergy Itching Verified 12/01/19 09:33 promethazine HCl * Allergy Hives Verified 12/01/19 09:33 [From Phenergan] - Social History Does the pt smoke?: No Smoking Status: Never smoker Does the pt drink ETOH?: Yes Does the pt have substance abuse?: No - Immunizations Immunizations are current?: Yes - POLST Patient has POLST: No PD ED PE NORMAL - Vitals Vital signs reviewed: Yes - General General: Alert and oriented X 3, No acute distress - HEENT HEENT: Atraumatic, PERRL, EOMI, Moist mucous membranes, Pharynx benign - Neck Neck: Supple, no meningeal sign - Cardiac Cardiac: RRR, No murmur, Strong equal pulses - Respiratory Respiratory: No respiratory distress, Clear bilaterally - Abdomen Abdomen: Soft, Non tender, Non distended - Derm Derm: Normal color, Warm and dry, No rash - Extremities Extremities: No deformity, No tenderness to palpate, No edema - Neuro Neuro: Alert and oriented X 3, Other (Grossly normal otherwise) - Psych Psych: Normal mood, Normal affect Results - Vitals Vitals: Vital Signs - 24 hr 12/01/19 09:29 Temperature 36.1 C L Heart Rate 69 Respiratory 12 Rate Blood Pressure 155/105 H O2 Saturation 100 Oxygen O2 Source Room air - Labs Labs: Laboratory Tests 12/01/19 12/01/19 12/01/19 09:45 09:45 09:45 WBC 6.8 RBC 4.42 Hgb 13.3 Hct 38.3 MCV 86.7 MCH 30.1 MCHC 34.7 RDW 12.3 Plt Count 265 MPV 8.5 Neut # (Auto) 4.0 Lymph # (Auto) 2.4 [place] # (Auto) 0.3 Eos # (Auto) 0.1 Baso # (Auto) 0.0 Absolute Nucleated RBC 0.00 Nucleated RBC % 0.0 Sodium 139 Potassium 3.2 L Chloride 102 Carbon Dioxide 27 Anion Gap 10.0 BUN 11 Creatinine 0.6 Estimated GFR (MDRD) 110 Glucose 99 Calcium 9.3 Total Bilirubin 0.7 AST 13 ALT 14 Alkaline Phosphatase 84 Troponin I High Sens 3.2 Total Protein 6.8 Albumin 4.0 Globulin 2.8 Albumin/Globulin Ratio 1.4 Lipase 44 Influenza A (Rapid) Influenza B (Rapid) 12/01/19 11:40 WBC RBC Hgb Hct MCV MCH MCHC RDW Plt Count MPV Neut # (Auto) Lymph # (Auto) [place] # (Auto) Eos # (Auto) Baso # (Auto) Absolute Nucleated RBC Nucleated RBC % Sodium Potassium Chloride Carbon Dioxide Anion Gap BUN Creatinine Estimated GFR (MDRD) Glucose Calcium Total Bilirubin AST ALT Alkaline Phosphatase Troponin I High Sens Total Protein Albumin Globulin Albumin/Globulin Ratio Lipase Influenza A (Rapid) Negative Influenza B (Rapid) Negative PD MEDICAL DECISION MAKING - ED course Complexity details: reviewed results, re-evaluated patient, considered differential, d/w patient ED course: The patient was fairly well-appearing in the emergency department and was worked up with labs, which were normal. Chest x-ray did not show any obvious pneumonia. Influenza and COVID swabs were sent. The patient was given 1 L bolus point and normal saline in the emergency department, as well as Zofran and Toradol for symptomatic relief. Departure - Departure Disposition: 01 Home, Self Care Clinical Impression: Chest pain Qualifiers: Chest pain type: chest pain on breathing Qualified Code(s): R07.1 - Chest pain on breathing; R07.81 - Pleurodynia Condition: Stable Instructions: ED Chest Pain NonCardiac, ED Viral Syndrome Prescriptions: Ondansetron Odt [Zofran Odt] 4 mg TL Q6H PRN #10 tablet PRN Reason: Nausea / Vomiting Comments: Your tests look good. You most likely have 1 of the many viruses that are going around right now, which can cause the stomach and intestines symptoms, and also because esophageal spasm. You may have esophageal spasm from some reflux of gastric contents associated with your nausea, and preceded by the vomiting. Additionally, it is not uncommon to have pain in the chest and back after vomiting. Your chest x-ray is clear and your labs look great. Your case has been discussed with your primary care physician who would like to see you in follow-up next week if you are not feeling better. Please take the nausea medication at home, as needed, to help with your symptoms.
--- NOTE | 2019-12-01 10:37 | XRAY Report ---
Reason: Chest pain Procedure Date: 12/01/2019 Accession Number: [id number] / [id number] Procedure: XR - Chest 1 View X-Ray CPT Code: 81310 Final Report FULL RESULT: EXAM: CHEST RADIOGRAPHY EXAM DATE: 12/01/2019 09:42 AM. CLINICAL HISTORY: Chest pain. COMPARISON: None. TECHNIQUE: 1 view. FINDINGS: Lungs/Pleura: No focal opacities evident. No pleural effusion. No pneumothorax. Mediastinum: Within exam limitations, the cardiomediastinal contour is normal. Other: None. IMPRESSION: Normal single view chest. RADIA
[2019-12-01 13:25] VITALS: BP 148/90
== END 2019-12-01 13:25 | disposition home or self-care (01) ==
LOC: ED 09:21
DX: R07.1 Chest pain on breathing (principal); R07.81 Pleurodynia; Z20.828 Contact with and (suspected) exposure to other viral communicable diseases; R11.2 Nausea with vomiting, unspecified; R19.7 Diarrhea, unspecified; K21.9 Gastro-esophageal reflux disease without esophagitis; I10 Essential (primary) hypertension
CPT/HCPCS: 36415; 71045; 80053; 81599; 83690; 84484; 85025; 87275; 87276; 93005; 96361; 96374; 99284

== ENCOUNTER 2022-02-07 21:07 | Outpatient (CLI) | payer OTHER | END 2022-02-07 21:08 | disposition short-term general hospital (02) | LOC: EMS 21:07 | DX: S99.911A Unspecified injury of right ankle, initial encounter (principal); W18.49XA Other slipping, tripping and stumbling without falling, initial encounter; Y93.51 Activity, roller skating (inline) and skateboarding; Y92.331 Roller skating rink as the place of occurrence of the external cause | CPT/HCPCS: A0425; A0427 ==